=== PATIENT | male | born 1990 | race African-American/Black ===

== ENCOUNTER 2017-02-03 17:14 | Emergency (ER) | payer SELFPAY ==
[~2017-02-03] VITALS: Ht 182.9 cm; Wt 77.5 kg
[~2017-02-03 17:14] MED LIST: Z.0.NO CURRENT MEDS
[2017-02-03 17:15] VITALS: BP 134/78; PULSE 68; RESP 16; TEMP 97.8; O2SAT 99
--- NOTE | 2017-02-03 17:34 | PD ---
Physical Exam Date Seen by Provider: Feb 03, 2017 Time Seen by Provider: 17:32 Narrative 26 yo male that presents to the ED for swollen finger on the left ring finger. Going on for a few days. Pain is 6/10. Bites his nails, no injuries. Vitals sign stable. Patient awaiting bed placement. Data Data Last Documented VS Vital Signs Date Time Temp Pulse Resp B/P Pulse Ox O2 Delivery O2 Flow Rate FiO2 02/03/17 17:15 97.8 68 16 134/78 99 Room Air [facility] Medical Record Reviewed: Yes Supervised Visit with WOLF: Jeffery Virk Feb 03, 2017 17:34
[2017-02-03] MEDS ORDERED: CEPH-460 PO (18:00)
[2017-02-03] MEDS ORDERED: LIDOCAINE HCL 1% 50 ML VIAL INFIL ONE (18:00)
[2017-02-03] MEDS ORDERED: BUPIVACAINE HCL PF 0.5% 10 ML VIAL INFIL ONE (18:00)
[2017-02-03] MEDS ORDERED: IBUP800T23 PO (18:00)
[2017-02-03] MEDS ORDERED: BACT800T5 PO (18:01)
--- NOTE | 2017-02-03 18:01 | PD ---
HPI Chief Complaint: Pain: Acute or Chronic Time Seen by Provider: 17:59 Travel History International Travel<30 days: No Contact w/Intl Traveler<30days: No Traveled to known affect area: No History of Present Illness HPI 26-year-old male presents to the emergency Department with complaint of pain and swelling to the distal aspect of the left fourth finger 5 days. Denies paresthesias, loss of sensation, decreased range of motion to the affected finger. Denies fever, chills, nausea, vomiting. Has not taken any medications or tried any treatments to alleviate his symptoms. No known allergies. Up-to- date on his tetanus vaccination. No other medical complaints. No other modifying factors or associated signs and symptoms. PFSH Past Medical History Diminished Hearing: No Integumentary: Yes ([facility]) Social History Alcohol Use: No Tobacco Use: No Substance Use: No Allergies-Medications (Allergen,Severity, Reaction): Coded Allergies: No Known Allergies (Verified , 10/16/12) Reported Meds & Prescriptions Reported Meds & Active Scripts Active Bactrim DS (Sulfamethoxazole-Trimethoprim) 800-160 Mg Tab 1 Tab PO BID 10 Days Ibuprofen 800 Mg Tab 800 Mg PO Q6HR PRN Keflex (Cephalexin) 500 Mg Cap 500 Mg PO Q6H 10 Days Reported No Current Meds (Miscellaneous Medication) Misc Review of Systems Except as stated in HPI: all other systems reviewed are Neg Physical Exam Narrative GENERAL: Well-nourished, well-developed male patient, in no acute distress SKIN: There is an indurated area to the distal aspect of the left fourth digit that is consistent with a paronychia; there is fluctuance but no pointing or drainage. The finger is with edema to the area of the paronychia; otherwise his fingers without erythema, edema and with full range of motion, sensory intact, and less than 3 second cap refill. HEAD: Atraumatic. Normocephalic. EYES: Pupils equal and round. No scleral icterus. No injection or drainage. ENT: Mucosa pink and moist. Airway patent. NECK: Trachea midline. CARDIOVASCULAR: Regular rate. RESPIRATORY: No accessory muscle use. GASTROINTESTINAL: Flat. MUSCULOSKELETAL: No obvious deformities. No clubbing. No cyanosis. No edema. NEUROLOGICAL: Awake and alert. Oriented 3. No obvious cranial nerve deficits. Motor grossly within normal limits. Normal speech. PSYCHIATRIC: Appropriate mood and affect; insight and judgment normal. Data Data Last Documented VS Vital Signs Date Time Temp Pulse Resp B/P Pulse Ox O2 Delivery O2 Flow Rate FiO2 02/03/17 17:15 97.8 68 16 134/78 99 Room Air Orders Bupivacaine Pf 0.5% Inj (Marcaine Pf 0.5 (02/03/17 18:00) Lidocaine 1% Inj (50 Ml) (Xylocaine 1% I (02/03/17 18:00) Wound Culture And Gram Stain (02/03/17 18:01) MDM Medical Decision Making Medical Screen Exam Complete: Yes Emergency Medical Condition: Yes Medical Record Reviewed: Yes Differential Diagnosis Paronychia, contusion, less likely felon Narrative Course 26-year-old male with paronychia to the left fourth digit. See my procedure note for incision and drainage. Up-to-date on tetanus vaccination. Wound culture pending. Ibuprofen, Keflex, Bactrim prescribed for home. Patient verbalizes understanding and agreement with treatment plan. Patient is medically cleared and stable for discharge. Discussed reasons to return to the emergency department. Instructed patient to follow up with primary care provider. Patient agrees with treatment plan. The patients vital signs are stable and the patient is stable for outpatient follow-up and treatment. Patient discharged home, stable and in no acute distress. Procedures Procedure Narrative INCISION AND DRAINAGE OF ABSCESS: The area was prepped and was sterilely draped. The finger was digitally blocked with 1% lidocaine and 0.5% bupivacaine. A number 11 scalpel was used to make a less than 0.5-cm incision across the area of the abscess. The abscess was drained, complex loculations were broken down, and irrigated with normal saline. Cultures were obtained. Sterile dressing applied. Diagnosis Primary Impression: Paronychia of finger of left hand Referrals: Primary Care Physician Patient Instructions: General Instructions, Paronychia (ED) Departure Forms: Tests/Procedures, Work Release Enter return to work date: Feb 05, 2017 Additional Instructions: Complete full course of antibiotics Warm compresses to the affected area Keep area clean and dry Ibuprofen or Tylenol as instructed and 19 for pain and inflammation Follow-up with primary care provider Return to emergency department immediately with worsening of symptoms Med/Other Pt SpecificInfo: Prescription(s) given Scripts Sulfamethoxazole-Trimethoprim (Bactrim DS)800-160 Mg Tab1 Tab PO BID 10 Days Ref 0 Prov:Marisa Carballo 02/03/17 Ibuprofen 800 Mg [id number] Mg PO Q6HR PRN (PAIN) #30 TAB Ref 0 Prov:Marisa CarballoP 02/03/17 Cephalexin (Keflex)500 Mg [id number] Mg PO Q6H 10 Days Ref 0 Prov:Marisa Carballo 02/03/17 Disposition: 01 DISCHARGE HOME Condition: Stable Marisa Carballo Feb 03, 2017 18:01 Marisa Carballo Feb 03, 2017 18:01
== END 2017-02-03 19:01 | disposition home or self-care (01) ==
LOC: NEPK 17:14
DX: L03.012 Cellulitis of left finger (principal); B95.1 Streptococcus, group B, as the cause of diseases classified elsewhere
CPT/HCPCS: 10060; 86403; 87070; 87205